=== PATIENT | female | born 1975 | race Caucasian/White ===

== ENCOUNTER 2016-07-21 19:31 | Observation (INO) | payer OTHER ==
[~2016-07-21] VITALS: Ht 154.9 cm; Wt 58.1 kg
[~2016-07-21 19:31] MED LIST: ASPIRIN EC81 MG PO
[2016-07-21 20:14] LABS: RED BLOOD COUNT 3.97 M/UL (4.00-5.10); WHITE BLOOD COUNT 10.2 K/UL (4.5-11.0)
[2016-07-21 20:37] LABS: BUN/CREATININE RATIO 13 (0-10)
[2016-07-22 05:13] LABS: HEMOGLOBIN 11.4 gm/dl (12.3-15.3); RED BLOOD COUNT 3.56 M/UL (4.00-5.10); WHITE BLOOD COUNT 9.6 K/UL (4.5-11.0)
[2016-07-22] MEDS ORDERED: ALPRAZOLAM0.5 MG PO (13:17)
[2016-07-22] MEDS ORDERED: PROZAC20 MG PO (13:18)
[2016-07-22] MEDS ORDERED: TRAZODONE HCL50 MG PO (13:18)
[2016-07-22] MEDS ORDERED: LOPID TAB 600600 MG PO (13:19)
[2016-07-22] MEDS ORDERED: NORCO 10-325 T1 EACH PO (13:20)
[2016-07-22] MEDS ORDERED: PLAVIX 75 MG TA75 MG PO (13:21)
[2016-07-22] MEDS ORDERED: LOPRESSOR 25 MG25 MG PO (13:22)
[2016-07-23] MEDS ORDERED: PLAVIX 75 MG TA75 MG PO (19:34)
[2016-07-23] MEDS ORDERED: PROZAC20 MG PO (19:35)
[2016-07-23] MEDS ORDERED: DESYREL 50 MG T50 MG PO (19:35)
[2016-07-23] MEDS ORDERED: GEMFIBROZIL600 MG PO (19:36)
[2016-07-23] MEDS ORDERED: LOPRESSOR 25 MG25 MG PO (19:37)
[2016-07-23] MEDS ORDERED: LORTAB 5-325 M1 EACH PO (19:38)
[2016-07-23] MEDS ORDERED: HYDROCODON-ACE1 EAC6 PO (19:40)
[2016-07-23] MEDS ORDERED: ASPIRIN81 MG PO (19:41)
[2016-07-23] MEDS ORDERED: ALPRAZOLAM0.5 MG PO (19:41)
[2016-07-23] MEDS ORDERED: LIPITOR TAB 1010 MG PO (19:42)
[2016-07-23] MEDS ORDERED: CHANTIX1 EACH PO (19:48)
== END 2016-07-23 20:22 | disposition home or self-care (01) ==
LOC: ER1 19:31 → MED SURG 4 21:30 → ZEROF 21:30 → MED SURG 4 07-22 19:59
PROVIDERS: Emergency Medicine; ADMIT Family Medicine
DX: R07.9 Chest pain, unspecified (principal); I25.10 Atherosclerotic heart disease of native coronary artery without angina pectoris; I10 Essential (primary) hypertension; E78.5 Hyperlipidemia, unspecified; F41.9 Anxiety disorder, unspecified; F17.210 Nicotine dependence, cigarettes, uncomplicated; Z91.19 Patient's noncompliance with other medical treatment and regimen; Z80.3 Family history of malignant neoplasm of breast; Z82.49 Family history of ischemic heart disease and other diseases of the circulatory system; Z79.82 Long term (current) use of aspirin; Z79.891 Long term (current) use of opiate analgesic; Z79.899 Other long term (current) drug therapy; Z90.710 Acquired absence of both cervix and uterus
CPT/HCPCS: ECHO; 36415; 70450; 71010; 78452; 80053; 80061; 82550; 82553; 83036; 83735; 83874; 83880; 84443; 84484; 85025; 85379; 93005; 93017; 93306; 96374; 96375; 96376; 99285; A9502; G0378; J1885; J2270; J2405; J2785

== ENCOUNTER → 2020-07-11 | Outpatient (CLI) | payer OTHER ==
[~2020-07-11] MED LIST changes: +ALPRAZOLAM0.5 MG PO; +ASPIRIN81 MG PO; +CHANTIX1 EACH PO; +CHILDREN'S ASPI81 MG PO; +DESYREL 50 MG T50 MG PO; +GABAPENTIN600 MG PO; +GEMFIBROZIL600 MG PO; +HYDROCODON-ACE1 EAC6 PO; +LIPITOR TAB 1010 MG PO; +LOPID TAB 600600 MG PO; +LOPRESSOR 25 MG25 MG PO; +LORTAB 5-325 M1 EACH PO; +NAPROSYN EC 50500 MG PO; +NORCO 10-325 T1 EACH PO; +NORCO 5-325 TA1 EACH PO; +PERCOCET 7.5-31 EACH PO; +PLAVIX 75 MG TA75 MG PO; +PROZAC20 MG PO; +TRAZODONE HCL50 MG PO
== END ==
LOC: KOH-I 07-07 08:30
DX: R31.9 Hematuria, unspecified (principal); K63.89 Other specified diseases of intestine
CPT/HCPCS: 74176

== ENCOUNTER 2020-09-18 22:54 | Emergency (ER) | payer OTHER | END 2020-09-19 01:10 | disposition left against medical advice (07) | LOC: ER1 22:54 | DX: Z53.21 Procedure and treatment not carried out due to patient leaving prior to being seen by health care provider (principal) | CPT/HCPCS: 93005 ==

== ENCOUNTER → 2021-03-02 | Outpatient (CLI) | payer OTHER | LOC: EXRD 02-27 10:30 | DX: R74.8 Abnormal levels of other serum enzymes (principal) | CPT/HCPCS: 76705 ==

== ENCOUNTER 2021-07-07 18:45 | Emergency (ER) | payer OTHER ==
[2021-07-07] MEDS ORDERED: PERCOCET 5/325 T1 EA PO (20:02)
[2021-07-07] MEDS ORDERED: Voltaren Gel 1% TOP (20:28)
[2021-07-07] MEDS ORDERED: NORFLEX 100 MG100 MG PO (20:28)
== END 2021-07-07 20:54 | disposition home or self-care (01) ==
LOC: ER1 18:45
DX: S22.089A Unspecified fracture of T11-T12 vertebra, initial encounter for closed fracture (principal); F17.210 Nicotine dependence, cigarettes, uncomplicated; V00.121A Fall from non-in-line roller-skates, initial encounter
CPT/HCPCS: 72128; 72131; 96372; 99284; J2360

== ENCOUNTER 2022-01-08 04:06 | Emergency (ER) | payer OTHER ==
[~2022-01-08 04:06] MED LIST changes: +NORFLEX 100 MG100 MG PO; +PERCOCET 5/325 T1 EA PO; +Voltaren Gel 1% TOP
[2022-01-08 06:24] LABS: HEMOGLOBIN 12.1 gm/dl (12.3-15.3); RED BLOOD COUNT 3.8 M/UL (4.00-5.10); WHITE BLOOD COUNT 7.7 K/UL (4.5-11.0)
[2022-01-08 07:05] LABS: BUN/CREATININE RATIO 12 (0-10)
== END 2022-01-08 10:54 | disposition home or self-care (01) ==
LOC: ER1 04:06
DX: M54.50 Low back pain, unspecified (principal); G89.29 Other chronic pain; F11.20 Opioid dependence, uncomplicated; J44.9 Chronic obstructive pulmonary disease, unspecified; I10 Essential (primary) hypertension; Z95.5 Presence of coronary angioplasty implant and graft; F17.200 Nicotine dependence, unspecified, uncomplicated
CPT/HCPCS: 72100; 80053; 81001; 85025; 87086; 99283